=== PATIENT | female | born 1995 | race African-American/Black ===

== ENCOUNTER 2020-10-17 17:49 | Emergency (ER) | payer OTHER ==
[~2020-10-17] VITALS: Ht 157.5 cm; Wt 72.6 kg
[2020-10-17 17:58] VITALS: BP 139/88
--- NOTE | 2020-10-17 17:58 | NUR ---
ED Nurse Note: Pt walked in to ED from home c/o fever, headache, dizziness, SOB, N/V, bodyache x 2 days. Per pt, she has been exposed to people who tested positive for Covid. On room air at 96%. Isolation precaution in place. ERPA at bedside.
--- NOTE | 2020-10-17 18:10 | NUR ---
ED Nurse Note: Xray at bedside.
--- NOTE | 2020-10-17 18:14 | Emergency Room Report ---
History of Present Illness General Chief Complaint: General Complaint Source: Patient Present Illness HPI 25-year-old female with no no signal past medical history with recent exposure to Covid x3 days here complaining of generalized body ache, congestion, shortness of breath. Has not taken medication for symptom relief. Reports that has history of asthma using albuterol inhaler. Denies wheezing. Appears to be stable with stable vital signs. Denies diarrhea, loss of taste and smell. Denies . Allergies: Uncoded Allergies: AMOXICILIN (Allergy, Unknown, 10/17/20) COVID-19 Screening Contact w/high risk pt: Yes Experienced COVID-19 symptoms?: Yes COVID-19 Testing performed [employer] NEGATIVE: No COVID-19 Screening: Negative COVID-19 COVID-19 Testing Source: 1 week ago Patient History Past Medical History: see triage record Past Surgical History: none Pertinent Family History: none Last Menstrual Period: 2 days ago Now: No : 2 Para: 0 Immunizations: UTD Reviewed Nursing Documentation: PMH: Agreed; PSxH: Agreed Nursing Documentation-PMH Past Medical History: No History, Except For Hx Asthma: Yes Review of Systems All Other Systems: negative except mentioned in HPI Physical Exam Vital Signs Date Time Temp Pulse Resp B/P (MAP) Pulse Ox O2 Delivery O2 Flow Rate FiO2 10/17/20 17:52 98.8 80 18 139/88 (105) 96 Room Air Sp02 EP Interpretation: reviewed, normal General Appearance: no apparent distress, alert, GCS 15, non-toxic Head: normocephalic, atraumatic Eyes: bilateral eye normal inspection, bilateral eye PERRL ENT: hearing grossly normal, no angioedema, normal voice Neck: full range of motion, supple/symm/no masses Respiratory: no respiratory distress, no retraction, no accessory muscle use Cardiovascular #1: regular rate, rhythm, no edema Gastrointestinal: soft, non-distended Musculoskeletal: back normal Neurologic: alert, motor strength/tone normal, oriented x3, sensory intact, responsive, speech normal Psychiatric: judgement/insight normal, memory normal, mood/affect normal, no suicidal/homicidal ideation Skin: no rash Lymphatic: no adenopathy Medical Decision Making PA Attestation All my diagnosis and treatment plans were reviewed ad discussed with my supervising physician Dr. Bryan Diagnostic Impression: Primary Impression: Suspected COVID-19 virus infection ER Course 25-year-old female with no no signal past medical history with recent exposure to Covid x3 days here complaining of generalized body ache, congestion, shortness of breath. Has not taken medication for symptom relief. Reports that has history of asthma using albuterol inhaler. Denies wheezing. Appears to be stable with stable vital signs. Denies diarrhea, loss of taste and smell. Denies . Ddx considered but are not limited to: bronchitis, PNA, URI viral, bacterial bronchitis Vital signs: are WNL, pt. is afebrile H&PE are most consistent with: Suspected coronavirus ORDERS: Chest x-ray, azithromycin, prednisone, Tylenol Motrin ED INTERVENTIONS: None required at this time. DISCHARGE: At this time pt. is stable for d/c to home. Will provide printed patient care instructions, and any necessary prescriptions. Care plan and follow up instructions have been discussed with the patient prior to discharge. Follow primary care provider, get tested for Covid, self quarantine for 14 days, if worsening symptoms return to the emergency room. At this time we cannot test the patient for Covid due to low resources and access to rapid testing. Advised patient to get outpatient testing for Covid and self quarantine regardless because of recent exposure. If worsening symptoms return to the emergency room Chest X-Ray Diagnostic Results Chest X-Ray Diagnostic Results : Chest X-Ray Ordered: Yes # of Views/Limited/Complete: 1 View Indication: Shortness of Breath EP Interpretation: Yes GASPER Xray: Interpretation reviewed, by supervising MD, and agrees with findings. Interpretation: no consolidation, no effusion, no pneumothorax Impression: No acute disease Electronically Signed by: Bib Ramachandran PA-C Last Vital Signs Date Time Temp Pulse Resp B/P (MAP) Pulse Ox O2 Delivery O2 Flow Rate FiO2 10/17/20 17:58 98.8 80 18 139/88 96 Room Air Disposition: HOME, SELF-CARE Condition: Stable Scripts Ibuprofen* (MOTRIN*) 600 Mg Tablet 600 MG ORAL Q6HR, #20 TAB Prov: Bib Katz 10/17/20 Acetaminophen* (TYLENOL EXTRA STRENGTH*) 500 Mg Tablet 500 MG ORAL Q8H PRN for Prn Headache/Temp > 101, #30 TAB 0 Refills Prov: Bib Katz 10/17/20 Prednisone* (PREDNISONE*) 20 Mg Tablet 40 MG ORAL DAILY for 5 Days, #10 TAB Prov: Bib Katz 10/17/20 Azithromycin* (ZITHROMAX*) 250 Mg Tablet 250 MG ORAL DAILY, #6 TAB 0 Refills Take two tables once daily for 1 day, then one tablet once daily for 4 days. Prov: Bib Katz 10/17/20 Patient Instructions: Upper Respiratory Infection, Adult, [id number] Additional Instructions: Take medication as directed, follow-up with your primary care provider, stay home for the next 14 days, get tested for Covid, you had a positive exposure few days ago and you are more likely to have COVID-19. If worsening symptoms, shortness of breath, low oxygenation return to the emergency room. Bib Katz Oct 17, 2020 18:14
[2020-10-17] MEDS ORDERED: ZITHROMAX250 MG ORAL (18:15)
[2020-10-17] MEDS ORDERED: PREDNISONE20 MG ORAL (18:15)
[2020-10-17] MEDS ORDERED: IBUPROFEN600 M1 ORAL (18:16)
[2020-10-17] MEDS ORDERED: TYLENOL EXTRA500 MG ORAL (18:16)
[2020-10-17 18:24] VITALS: BP 139/88
--- NOTE | 2020-10-17 18:24 | NUR ---
ED Nurse Note: Pt cleared by ERPA for discharge. DC instructions/prescription was given and explained to pt and verbalized understanding of teachings. All medical deviecs such as ID band removed. Pt is AAO x4, ambulatory and left with all personal belongings.
--- NOTE | 2020-10-18 16:57 | Diagnostic Imaging Report ---
Indication: Shortness of breath Technique: One view of the chest Comparison: none Findings: Lungs and pleural spaces are clear. Heart size is normal. Impression: No acute process
== END 2020-10-17 18:24 | disposition home or self-care (01) ==
LOC: EMR 18:20
DX: R06.02 Shortness of breath (principal); R52 Pain, unspecified; Z20.828 Contact with and (suspected) exposure to other viral communicable diseases; J45.909 Unspecified asthma, uncomplicated; Z88.1 Allergy status to other antibiotic agents; Z79.899 Other long term (current) drug therapy
CPT/HCPCS: 71045; Z7502; 99283